=== PATIENT | female | born 1950 | race Caucasian/White ===

== ENCOUNTER → 2016-10-24 | Outpatient (CLI) | payer BC ==
[~2016-10-24] MED LIST: ACTIVELLA PO; ALDACTAZIDE 251 TAB PO; ALTACE10 MG PO; ALTACE5 MG PO; AMARYL4 MG PO; ARICEPT ODT5 MG PO; ARICEPT10 M1 PO; ASPIRIN CHEWABL81 MG PO; ASPIRIN325 MG PO; ASPIRIN81 M1 PO; BYDUREON PEN2 MG SC; BYDUREON2 M1 SQ; CENTRUM SILVER1 EACH PO; CENTRUM1 TAB PO; COREG CR20 MG PO; CORGARD20 MG PO; CYMBALTA30 MG PO; EXELON1.5 MG PO; FERRATE325 MG PO; FLEXERIL5 MG PO; FLUOXETINE HYDR20 M1 PO; GEMFIBROZIL600 MG PO; HUMALOG100 U/ML SC; HUMALOG100 UNIT/1 SQ; HYDROCODONE BIT1 T11 PO; KLONOPIN WAFER0.5 MG PO; LEVEMIR FLEX100 U/ML SC; LEVEMIR10 ML SC; LEVEMIR100 U/ML PO; LOPID600 M1 PO; LOVAZA1 GM PO; MACROBID100 M1 PO; METFORMIN HCL500 M1 PO; METFORMIN500 MG PO; METFORMIN750 MG PO; MULTIPLE VITAMI1 TA3 PO; NADOLOL20 MG PO; NEURONTIN300 MG PO; NOVOLOG10 ML SC; OMEGA-31000 MG PO; PREDNISONE20 MG PO; PROZAC10 MG PO; PROZAC20 MG PO; PYRIDIUM200 MG PO; QUETIAPINE FUMARATE; RAMIPRIL5 MG PO; SEROQUEL50 MG PO; SIMVASTATIN40 MG PO; SPIRONOLACTONE1 TA1 PO; SYNTHROID,LEV100 MCG PO; Synthroid,Lev100 MCG PO; Synthroid,Levo25 MCG PO; ULTRAM50 MG PO; VICTOZA6 MG/ML SC; VITAMIN D1000 IU PO; XANAX0.25 MG PO; ZOCOR20 MG PO; ZOCOR40 MG PO; ZOFRAN ODT4 MG SL; [UNRECOGNIZED DRUG - OTHER] PO; [UNRECOGNIZED DRUG - REMARK]
[2016-10-24 12:16] LABS: BASO # 0.1 10*3/uL (0.0-0.1); BASO % 0.5 % (0.0-1.0); EOS # 0.9 10*3/uL (0.0-0.4); EOS % 8.3 % (1.0-4.0); HEMATOCRIT 35.3 % (37.0-47.0); HEMOGLOBIN 10.8 g/dl (12.0-16.0); IG # 0.1 10*3/uL (0.0-0.1); LYMPH % 27.4 % (27.0-41.0); MEAN CELL VOLUME 83.8 fl (81.0-99.0); MEAN CORPUSCULAR HGB 25.7 pg (27.0-31.0); MEAN CORPUSCULAR HGB CONC 30.6 g/dl (33.0-37.0); MEAN PLATELET VOLUME 10.3 fl (9.6-12.3); MONO # 0.7 10*3/uL (0.1-1.0); MONO % 6.2 % (3.0-9.0); NEUT # 6.2 10*3/uL (2.3-7.9); PLATELET COUNT AUTOMATED 278 10*3/uL (130-400); RED BLOOD COUNT 4.21 10*6/uL (4.10-5.10); RED CELL DISTRI WIDTH 14.7 % (0-14.5)
[2016-10-24 12:40] LABS: ALBUMIN 3.5 gm/dl (3.1-4.5); ALKALINE PHOSPHATASE 39 U/L (45-117); BILIRUBIN, TOTAL 0.3 mg/dl (0.2-1.0); BUN 24 mg/dl (7-24); CARBON DIOXIDE 29 mmol/L (21-32); CHLORIDE 102 mmol/L (98-107); CHOLESTEROL 136 mg/dL (<200); EST GLOM FILT AFRICAN AMERICAN > 60 ml/min; GLUCOSE 206 mg/dL (65-99); HDL CHOLESTEROL 53 mg/dl (40-60); LDL CHOLESTEROL 33 mg/dL (9-159); POTASSIUM 4.4 mmol/L (3.5-5.1); SGOT/AST 38 IU/L (3-35); SGPT/ALT 45 U/L (12-78); SODIUM 140 mmol/L (136-145); TOTAL PROTEIN 7.4 gm/dL (6.4-8.2); TRIGLYCERIDES 250 mg/dl (<150); VLDL CHOLESTEROL 50 mg/dL (6-40)
[2016-10-24 12:41] LABS: HEMOGLOBIN A1c 9.1 % (4.8-5.6)
== END | disposition home or self-care (01) ==
LOC: LAB 10:45
PROVIDERS: Family Medicine
DX: I15.2 Hypertension secondary to endocrine disorders (principal); E03.9 Hypothyroidism, unspecified; E55.9 Vitamin D deficiency, unspecified; E08.42 Diabetes mellitus due to underlying condition with diabetic polyneuropathy

== ENCOUNTER → 2017-01-14 | Outpatient (CLI) | payer BC ==
[2017-01-14 15:00] LABS: BILIRUBIN NEGATIVE (NEGATIVE); BLOOD TRACE-INTACT (NEGATIVE); CLARITY SL CLOUDY (CLEAR); COLOR YELLOW (YELLOW); GLUCOSE TRACE (NEGATIVE); KETONE NEGATIVE (NEGATIVE); LEUKO ESTERASE TRACE (NEGATIVE); NITRITE NEGATIVE (NEGATIVE); PH 5.5 (5.0-9.0); PROTEIN 2+ (NEGATIVE); SPECIFIC GRAVITY >= 1.030 (1.005-1.030); UROBILINOGEN 0.2 E.U./dl (0.2-1.0)
[2017-01-14 15:14] LABS: BACTERIA TRACE; RBC 0-2 rbc/hpf (0-2)
[2017-01-14 15:24] LABS: HEMOGLOBIN A1c 9.6 % (4.8-5.6)
[2017-01-14 15:28] LABS: ALBUMIN 3.5 gm/dl (3.1-4.5); ALKALINE PHOSPHATASE 46 U/L (45-117); BILIRUBIN, DIRECT < 0.1 mg/dL (0.0-0.2); BUN 26 mg/dl (7-24); CARBON DIOXIDE 28 mmol/L (21-32); CHLORIDE 101 mmol/L (98-107); CHOLESTEROL 129 mg/dL (<200); EST GLOM FILT AFRICAN AMERICAN > 60 ml/min; GLUCOSE 274 mg/dL (65-99); POTASSIUM 5.1 mmol/L (3.5-5.1); SGOT/AST 53 IU/L (3-35); SGPT/ALT 43 U/L (12-78); SODIUM 140 mmol/L (136-145); TOTAL PROTEIN 7.7 gm/dL (6.4-8.2); TRIGLYCERIDES 272 mg/dl (<150); VLDL CHOLESTEROL 54 mg/dL (6-40)
[2017-01-14 15:30] LABS: BILIRUBIN, TOTAL 0.3 mg/dl (0.2-1.0); HDL CHOLESTEROL 43 mg/dl (40-60); LDL CHOLESTEROL 32 mg/dL (9-159)
[2017-01-14 16:04] LABS: VITAMIN D, 25-HYDROXY 31.7 ng/mL (30-100)
== END | disposition home or self-care (01) ==
LOC: LAB 14:34
PROVIDERS: Internal Medicine
DX: E11.40 Type 2 diabetes mellitus with diabetic neuropathy, unspecified (principal); E11.65 Type 2 diabetes mellitus with hyperglycemia; E55.9 Vitamin D deficiency, unspecified; E78.5 Hyperlipidemia, unspecified

== ENCOUNTER → 2017-05-25 | Outpatient (CLI) | payer MEDICARE, BC ==
[2017-05-25 12:54] LABS: BILIRUBIN NEGATIVE (NEGATIVE); BLOOD TRACE-INTACT (NEGATIVE); CLARITY SL CLOUDY (CLEAR); COLOR YELLOW (YELLOW); GLUCOSE NEGATIVE (NEGATIVE); KETONE NEGATIVE (NEGATIVE); LEUKO ESTERASE TRACE (NEGATIVE); NITRITE NEGATIVE (NEGATIVE); SPECIFIC GRAVITY >= 1.030 (1.005-1.030); UROBILINOGEN 0.2 E.U./dl (0.2-1.0)
[2017-05-25 13:31] LABS: CHLORIDE 103 mmol/L (98-107); POTASSIUM 4.4 mmol/L (3.5-5.1); SODIUM 139 mmol/L (136-145)
[2017-05-25 13:40] LABS: ALBUMIN 3.3 gm/dl (3.1-4.5); ALKALINE PHOSPHATASE 43 U/L (45-117); BILIRUBIN, DIRECT 0.1 mg/dL (0.0-0.2); BUN 30 mg/dl (7-24); CHOLESTEROL 121 mg/dL (<200); CREATININE 0.89 mg/dL (0.55-1.02); FREE T4 1.18 ng/dl (0.76-1.46); HDL CHOLESTEROL 40 mg/dl (40-60); LDL CHOLESTEROL 27 mg/dL (9-159); SGOT/AST 35 IU/L (3-35); SGPT/ALT 43 U/L (12-78); TOTAL PROTEIN 7.4 gm/dL (6.4-8.2); TRIGLYCERIDES 270 mg/dl (<150); VLDL CHOLESTEROL 54 mg/dL (6-40)
[2017-05-25 13:41] LABS: BACTERIA 1+
== END | disposition home or self-care (01) ==
LOC: LAB 12:15
PROVIDERS: Internal Medicine
DX: E11.65 Type 2 diabetes mellitus with hyperglycemia (principal); E03.9 Hypothyroidism, unspecified; E78.5 Hyperlipidemia, unspecified; E55.9 Vitamin D deficiency, unspecified

== ENCOUNTER → 2017-10-01 | Outpatient (CLI) | payer MEDICARE ==
[2017-10-01 08:42] LABS: ALBUMIN 3.5 gm/dl (3.1-4.5); BILIRUBIN, DIRECT < 0.1 mg/dL (0.0-0.2); BUN 25 mg/dl (7-24); CHLORIDE 105 mmol/L (98-107); CHOLESTEROL 123 mg/dL (<200); CREATININE 1.02 mg/dL (0.55-1.02); POTASSIUM 4.2 mmol/L (3.5-5.1); SGOT/AST 34 IU/L (3-35); SGPT/ALT 39 U/L (12-78); SODIUM 140 mmol/L (136-145); TOTAL PROTEIN 7.5 gm/dL (6.4-8.2); TRIGLYCERIDES 281 mg/dl (<150); VLDL CHOLESTEROL 56 mg/dL (6-40)
[2017-10-01 08:49] LABS: ALKALINE PHOSPHATASE 43 U/L (45-117); FREE T4 1.11 ng/dl (0.76-1.46); HDL CHOLESTEROL 43 mg/dl (40-60); LDL CHOLESTEROL 24 mg/dL (9-159)
[2017-10-01 09:44] LABS: BILIRUBIN NEGATIVE (NEGATIVE); BLOOD NEGATIVE (NEGATIVE); COLOR YELLOW (YELLOW); GLUCOSE 3+ (NEGATIVE); KETONE NEGATIVE (NEGATIVE); LEUKO ESTERASE NEGATIVE (NEGATIVE); NITRITE NEGATIVE (NEGATIVE); SPECIFIC GRAVITY >= 1.030 (1.005-1.030); UROBILINOGEN 0.2 E.U./dl (0.2-1.0)
[2017-10-01 09:55] LABS: BACTERIA 1+; CLARITY SL CLOUDY (CLEAR); EPITHELIAL CELLS TNTC; RBC 0-2 rbc/hpf (0-2)
== END | disposition home or self-care (01) ==
LOC: LAB 07:19
PROVIDERS: Internal Medicine
DX: E11.65 Type 2 diabetes mellitus with hyperglycemia (principal); E55.9 Vitamin D deficiency, unspecified; E03.9 Hypothyroidism, unspecified; E78.5 Hyperlipidemia, unspecified

== ENCOUNTER → 2018-02-17 | Outpatient (CLI) | payer MEDICARE ==
[2018-02-17 09:54] LABS: ALBUMIN 3.7 gm/dl (3.1-4.5); BUN 30 mg/dl (7-24); CHLORIDE 105 mmol/L (98-107); POTASSIUM 4.4 mmol/L (3.5-5.1); SGOT/AST 34 IU/L (3-35); SODIUM 142 mmol/L (136-145)
[2018-02-17 10:01] LABS: ALKALINE PHOSPHATASE 38 U/L (45-117); BILIRUBIN, DIRECT < 0.1 mg/dL (0.0-0.2); CHOLESTEROL 141 mg/dL (<200); FREE T4 0.92 ng/dl (0.76-1.46); HDL CHOLESTEROL 48 mg/dl (40-60); LDL CHOLESTEROL 48 mg/dL (9-159); SGPT/ALT 34 U/L (12-78); TOTAL PROTEIN 7.8 gm/dL (6.4-8.2); TRIGLYCERIDES 224 mg/dl (<150); VLDL CHOLESTEROL 45 mg/dL (6-40)
[2018-02-17 10:24] LABS: VITAMIN D, 25-HYDROXY 34.8 ng/mL (30-100)
[2018-02-17 10:27] LABS: BILIRUBIN NEGATIVE (NEGATIVE); BLOOD NEGATIVE (NEGATIVE); CLARITY SL CLOUDY (CLEAR); COLOR YELLOW (YELLOW); GLUCOSE 3+ (NEGATIVE); KETONE NEGATIVE (NEGATIVE); LEUKO ESTERASE NEGATIVE (NEGATIVE); NITRITE NEGATIVE (NEGATIVE); PH 5.5 (5.0-9.0); SPECIFIC GRAVITY 1.025 (1.005-1.030); UROBILINOGEN 0.2 E.U./dl (0.2-1.0)
[2018-02-17 10:47] LABS: BACTERIA TRACE
== END | disposition home or self-care (01) ==
LOC: LAB 09:00
PROVIDERS: Internal Medicine
DX: E11.40 Type 2 diabetes mellitus with diabetic neuropathy, unspecified (principal); E55.9 Vitamin D deficiency, unspecified; E11.65 Type 2 diabetes mellitus with hyperglycemia; E03.9 Hypothyroidism, unspecified; E78.5 Hyperlipidemia, unspecified

== ENCOUNTER 2018-05-11 19:06 | Inpatient (IN) | payer MEDICARE ==
[~2018-05-11] VITALS: Ht 154.9 cm; Wt 84.0 kg
--- NOTE | ~2018-05-11 | EKG ---
[place], [place] ELECTROCARDIOGRAM REPORT NAME: ALFREDO HUERTA UNIT #: [id number] ROOM: 407 DOCTOR: EL DRAFT REPORT BIRTHDATE: [birth year] [place] Test Date: 2018-05-11 Test Time: 20:19:02 Pat Name: ALFREDO HUERTA Department: Room: 407 Gender: F Pill Packer: REBECA : 1950 Requested By: ZACHARIAH LEE Order Number: [id number] Reading MD: Jesse Shankar MD Measurements Intervals [place] Rate: 68 P: 84 NC: 195 QRS: 49 QRSD: 94 T: 45 QT: 436 QTc: 464 Interpretive Statements Sinus rhythm Baseline wander in lead(s) V4 Electronically Signed On 05-12-2018 8:30:42 PDT by Jesse Shankar MD CM:EKGRPT:ELECTROCARDIOGRAM REPORT 18 ZACHARIAH YATES DRAFT REPORT ZACHARIAH LEE DO
[~2018-05-11 19:06] MED LIST changes: +GLUCOPHAGE1000 MG PO
[2018-05-11 19:18] VITALS: BP 195/86
[2018-05-11 20:24] LABS: BASO # 0.1 10*3/uL (0.0-0.1); BASO % 0.5 % (0.0-1.0); EOS # 0.7 10*3/uL (0.0-0.4); EOS % 5.8 % (1.0-4.0); HEMATOCRIT 40.5 % (37.0-47.0); HEMOGLOBIN 12.1 g/dl (12.0-16.0); LYMPH # 2.6 10*3/uL (1.3-4.4); LYMPH % 20.6 % (27.0-41.0); MEAN CELL VOLUME 81.5 fl (81.0-99.0); MEAN CORPUSCULAR HGB 24.3 pg (27.0-31.0); MEAN CORPUSCULAR HGB CONC 29.9 g/dl (33.0-37.0); MEAN PLATELET VOLUME 9.8 fl (9.6-12.3); MONO # 0.3 10*3/uL (0.1-1.0); MONO % 2.5 % (3.0-9.0); NEUT # 8.8 10*3/uL (2.3-7.9); NEUT % 70.2 % (47.0-73.0); PLATELET COUNT AUTOMATED 285 10*3/uL (130-400); RED BLOOD COUNT 4.97 10*6/uL (4.10-5.10); RED CELL DISTRI WIDTH 17.2 % (0-14.5); WHITE BLOOD COUNT 12.6 10*3/uL (4.8-10.8)
[2018-05-11 20:26] VITALS: BP 179/67
[2018-05-11 20:36] LABS: ACT PARTIAL THROMBO TIME 27.2 SECONDS (20.8-31.5)
[2018-05-11 20:43] LABS: ALBUMIN 3.6 gm/dl (3.1-4.5); ALKALINE PHOSPHATASE 49 U/L (45-117); BUN 31 mg/dl (7-24); CHLORIDE 104 mmol/L (98-107); CREATININE 0.98 mg/dL (0.55-1.02); POTASSIUM 4.4 mmol/L (3.5-5.1); SGOT/AST 37 IU/L (3-35); SGPT/ALT 34 U/L (12-78); SODIUM 137 mmol/L (136-145); TOTAL PROTEIN 8.6 gm/dL (6.4-8.2); TROPONIN I 0.018 ng/ml (<0.045)
[2018-05-11 22:20] VITALS: BP 166/80
[2018-05-11 22:42] VITALS: BP 166/80
[2018-05-12] VITALS: BP 187/67
[2018-05-12 07:18] LABS: BASO % 0.2 % (0.0-1.0); EOS # 0.6 10*3/uL (0.0-0.4); HEMATOCRIT 37.2 % (37.0-47.0); HEMOGLOBIN 11.4 g/dl (12.0-16.0); LYMPH # 3.6 10*3/uL (1.3-4.4); LYMPH % 29.6 % (27.0-41.0); MEAN CELL VOLUME 79.5 fl (81.0-99.0); MEAN CORPUSCULAR HGB 24.4 pg (27.0-31.0); MEAN CORPUSCULAR HGB CONC 30.6 g/dl (33.0-37.0); MONO # 0.8 10*3/uL (0.1-1.0); MONO % 6.9 % (3.0-9.0); NEUT % 57.9 % (47.0-73.0); PLATELET COUNT AUTOMATED 290 10*3/uL (130-400); RED BLOOD COUNT 4.68 10*6/uL (4.10-5.10); RED CELL DISTRI WIDTH 17.1 % (0-14.5); WHITE BLOOD COUNT 12.1 10*3/uL (4.8-10.8)
[2018-05-12 07:48] LABS: BUN 30 mg/dl (7-24); CHLORIDE 106 mmol/L (98-107); CREATININE 0.97 mg/dL (0.55-1.02); PHOSPHOROUS 2.7 mg/dL (2.5-4.9); SODIUM 140 mmol/L (136-145)
[2018-05-12 12:00] VITALS: BP 153/90
[2018-05-12] MEDS ORDERED: VITAMIN D31000 UNI1 PO (12:26)
[2018-05-12] MEDS ORDERED: ASPIRIN CHEWABL81 MG PO (12:28)
[2018-05-12] MEDS ORDERED: DONEPEZIL HYDRO10 M1 PO (12:29)
[2018-05-12] MEDS ORDERED: ACTOS15 M1 PO (12:30)
[2018-05-12] MEDS ORDERED: ZOLOFT50 MG PO (12:31)
[2018-05-12] MEDS ORDERED: SEROQUEL50 MG PO (12:32)
[2018-05-12] MEDS ORDERED: HUMALOG MI100 UNIT/1 SQ ×2 (12:36→12:37)
== END 2018-05-12 14:08 | disposition home or self-care (01) | DRG 639 ==
LOC: ED 19:06 → 4E 21:04 → EDHOLD 21:04 → 4E 22:06
PROVIDERS: Student in an Organized Health Care Education/Training Program
DX: E11.649 Type 2 diabetes mellitus with hypoglycemia without coma (principal); I16.0 Hypertensive urgency; D72.829 Elevated white blood cell count, unspecified; E11.42 Type 2 diabetes mellitus with diabetic polyneuropathy; F41.9 Anxiety disorder, unspecified; E78.5 Hyperlipidemia, unspecified; F32.9 Major depressive disorder, single episode, unspecified; E03.9 Hypothyroidism, unspecified; F03.90 Unspecified dementia, unspecified severity, without behavioral disturbance, psychotic disturbance, mood disturbance, and anxiety; K75.81 Nonalcoholic steatohepatitis (NASH); E66.01 Morbid (severe) obesity due to excess calories; Z79.4 Long term (current) use of insulin; Z79.84 Long term (current) use of oral hypoglycemic drugs; Z79.82 Long term (current) use of aspirin; Z79.899 Other long term (current) drug therapy; Z68.34 Body mass index [BMI] 34.0-34.9, adult; Z98.891 History of uterine scar from previous surgery; Z82.49 Family history of ischemic heart disease and other diseases of the circulatory system

== ENCOUNTER → 2018-05-30 | Outpatient (CLI) | payer MEDICARE ==
[~2018-05-30] MED LIST changes: +ACTOS15 M1 PO; +DONEPEZIL HYDRO10 M1 PO; +HUMALOG MI100 UNIT/1 SQ; +VITAMIN D31000 UNI1 PO; +ZOLOFT50 MG PO
[2018-05-30 09:13] LABS: ALBUMIN 3.3 gm/dl (3.1-4.5); BUN 30 mg/dl (7-24); CHLORIDE 105 mmol/L (98-107); CREATININE 0.91 mg/dL (0.55-1.02); POTASSIUM 4.1 mmol/L (3.5-5.1); SGOT/AST 25 IU/L (3-35); SGPT/ALT 27 U/L (12-78); SODIUM 138 mmol/L (136-145)
[2018-05-30 09:20] LABS: ALKALINE PHOSPHATASE 40 U/L (45-117); BILIRUBIN, DIRECT 0.1 mg/dL (0.0-0.2); CHOLESTEROL 151 mg/dL (<200); FREE T4 0.93 ng/dl (0.76-1.46); HDL CHOLESTEROL 49 mg/dl (40-60); LDL CHOLESTEROL 51 mg/dL (9-159); TOTAL PROTEIN 7.4 gm/dL (6.4-8.2); TRIGLYCERIDES 253 mg/dl (<150); VLDL CHOLESTEROL 51 mg/dL (6-40)
[2018-05-30 09:48] LABS: BILIRUBIN NEGATIVE (NEGATIVE); BLOOD TRACE-INTACT (NEGATIVE); CLARITY SL CLOUDY (CLEAR); COLOR YELLOW (YELLOW); GLUCOSE NEGATIVE (NEGATIVE); KETONE NEGATIVE (NEGATIVE); LEUKO ESTERASE NEGATIVE (NEGATIVE); NITRITE NEGATIVE (NEGATIVE); PH 5.5 (5.0-9.0); SPECIFIC GRAVITY >= 1.030 (1.005-1.030); UROBILINOGEN 0.2 E.U./dl (0.2-1.0)
[2018-05-30 09:50] LABS: VITAMIN D, 25-HYDROXY 35.7 ng/mL (30-100)
[2018-05-30 10:47] LABS: BACTERIA 1+
== END | disposition home or self-care (01) ==
LOC: LAB 08:16
PROVIDERS: Internal Medicine
DX: E11.40 Type 2 diabetes mellitus with diabetic neuropathy, unspecified (principal); E11.65 Type 2 diabetes mellitus with hyperglycemia; E03.9 Hypothyroidism, unspecified; E55.9 Vitamin D deficiency, unspecified; E78.5 Hyperlipidemia, unspecified

== ENCOUNTER → 2018-11-04 | Outpatient (CLI) | payer MEDICARE ==
[~2018-11-04] MED LIST changes: +SERTRALINE HYDR50 MG PO; +VIBRAMYCIN100 MG PO
[2018-11-04 09:47] LABS: ALBUMIN 3.4 gm/dl (3.1-4.5); ALKALINE PHOSPHATASE 48 U/L (45-117); BILIRUBIN, DIRECT < 0.1 mg/dL (0.0-0.2); BUN 26 mg/dl (7-24); CHLORIDE 104 mmol/L (98-107); CHOLESTEROL 177 mg/dL (<200); CREATININE 1.06 mg/dL (0.55-1.02); FREE T4 1.22 ng/dl (0.76-1.46); HDL CHOLESTEROL 52 mg/dl (40-60); LDL CHOLESTEROL 50 mg/dL (9-159); POTASSIUM 4.3 mmol/L (3.5-5.1); SGOT/AST 21 IU/L (3-35); SGPT/ALT 22 U/L (12-78); SODIUM 140 mmol/L (136-145); TOTAL PROTEIN 7.8 gm/dL (6.4-8.2); TRIGLYCERIDES 374 mg/dl (<150); VLDL CHOLESTEROL 75 mg/dL (6-40)
[2018-11-04 10:24] LABS: VITAMIN D, 25-HYDROXY 28.9 ng/mL (30-100)
[2018-11-04 10:57] LABS: BILIRUBIN NEGATIVE (NEGATIVE); BLOOD TRACE-INTACT (NEGATIVE); CLARITY SL CLOUDY (CLEAR); COLOR YELLOW (YELLOW); GLUCOSE TRACE (NEGATIVE); KETONE NEGATIVE (NEGATIVE); LEUKO ESTERASE NEGATIVE (NEGATIVE); NITRITE NEGATIVE (NEGATIVE); SPECIFIC GRAVITY >= 1.030 (1.005-1.030); UROBILINOGEN 0.2 E.U./dl (0.2-1.0)
[2018-11-04 11:18] LABS: BACTERIA 3+; HYALINE CAST 21-30; MUCOUS 1+
== END | disposition home or self-care (01) ==
LOC: LAB 08:32
PROVIDERS: Internal Medicine
DX: E03.9 Hypothyroidism, unspecified (principal); E11.40 Type 2 diabetes mellitus with diabetic neuropathy, unspecified; E78.5 Hyperlipidemia, unspecified; E55.9 Vitamin D deficiency, unspecified; E11.65 Type 2 diabetes mellitus with hyperglycemia

== ENCOUNTER → 2019-01-18 | Outpatient (CLI) | payer MEDICARE | END | disposition home or self-care (01) | LOC: RAD 01:24 → MAMMO 14:00 | DX: Z12.31 Encounter for screening mammogram for malignant neoplasm of breast (principal); Z13.820 Encounter for screening for osteoporosis; N95.9 Unspecified menopausal and perimenopausal disorder; E11.9 Type 2 diabetes mellitus without complications ==

== ENCOUNTER 2019-05-30 01:59 | Emergency (ER) | payer MEDICARE ==
[~2019-05-30] VITALS: Ht 157.4 cm; Wt 90.7 kg
[2019-05-30 02:07] VITALS: BP 157/95
== END 2019-05-30 03:28 | disposition home or self-care (01) ==
LOC: ED 01:59
DX: J34.89 Other specified disorders of nose and nasal sinuses (principal); I10 Essential (primary) hypertension; F03.90 Unspecified dementia, unspecified severity, without behavioral disturbance, psychotic disturbance, mood disturbance, and anxiety; E78.5 Hyperlipidemia, unspecified; E03.9 Hypothyroidism, unspecified; E66.01 Morbid (severe) obesity due to excess calories; E11.40 Type 2 diabetes mellitus with diabetic neuropathy, unspecified; Z79.2 Long term (current) use of antibiotics; Z79.82 Long term (current) use of aspirin; Z79.899 Other long term (current) drug therapy

== ENCOUNTER → 2019-11-16 | Outpatient (CLI) | payer MEDICARE | END | disposition home or self-care (01) | LOC: RAD 12:27 | DX: M41.85 Other forms of scoliosis, thoracolumbar region (principal); M47.817 Spondylosis without myelopathy or radiculopathy, lumbosacral region; I10 Essential (primary) hypertension; E11.9 Type 2 diabetes mellitus without complications ==

== ENCOUNTER 2020-01-29 14:30 | Inpatient (IN) | payer MEDICARE ==
[~2020-01-29] VITALS: Ht 162.5 cm; Wt 83.0 kg
[2020-01-29 14:38] VITALS: BP 142/60
[2020-01-29 15:24] LABS: BASO # 0.1 10*3/uL (0.0-0.1); BASO % 0.5 % (0.0-1.0); EOS # 0.6 10*3/uL (0.0-0.4); EOS % 4.7 % (1.0-4.0); HEMATOCRIT 31.9 % (37.0-47.0); LYMPH # 3.1 10*3/uL (1.3-4.4); LYMPH % 24.8 % (27.0-41.0); MEAN CELL VOLUME 83.1 fl (81.0-99.0); MEAN CORPUSCULAR HGB CONC 30.1 g/dl (33.0-37.0); MEAN PLATELET VOLUME 10.5 fl (9.6-12.3); MONO # 0.9 10*3/uL (0.1-1.0); MONO % 7.5 % (3.0-9.0); NEUT # 7.7 10*3/uL (2.3-7.9); NEUT % 61.9 % (47.0-73.0); PLATELET COUNT AUTOMATED 317 10*3/uL (130-400); RED BLOOD COUNT 3.84 10*6/uL (4.10-5.10); RED CELL DISTRI WIDTH 14.3 % (0-14.5); WHITE BLOOD COUNT 12.4 10*3/uL (4.8-10.8)
[2020-01-29 15:35] LABS: ACT PARTIAL THROMBO TIME 27.9 SECONDS (20.0-32.1)
[2020-01-29 15:43] LABS: ALBUMIN 2.6 gm/dl (3.1-4.5); CREATININE 2.23 mg/dL (0.55-1.02); POTASSIUM 4.1 mmol/L (3.5-5.1); TOTAL PROTEIN 7.4 gm/dL (6.4-8.2)
[2020-01-29 16:55] VITALS: BP 122/61
--- NOTE | 2020-01-29 17:20 | NUR ---
Time: 1749 A 69 year old FEMALE admitted to 5E under services of NOEL CAMACHO DO. Pt. arrived via ambulatory from ER. Chief complaint: CELLULITIS. BARBARA AGUILAR
--- NOTE | 2020-01-29 17:52 | NUR ---
DR. CALDWELL'S RESIDENT PHONE NUMBER CALLED. NO ANSWER AT THIS TIME.
[2020-01-29 17:56] VITALS: BP 142/66
[2020-01-29] MEDS ORDERED: GOOD SENSE ASP325 MG PO (18:41)
[2020-01-29] MEDS ORDERED: VASCEPA1 G1 PO (18:51)
--- NOTE | 2020-01-29 19:04 | NUR ---
DR. CALDWELL'S RESIDENT NOTIFIED OF CONSULT
[2020-01-29 20:00] VITALS: BP 128/63
--- NOTE | 2020-01-29 20:00 | NUR ---
PATIENT RESTING IN BED. WOUND ON 3RD TOE CLEANSED AND DRY GUAZE WRAPPED AROUND AREA. PRULENT DRAINAGE NOTED. C/O TENDERNESS AT SITE. PATIENT VOICES NO OTHER COMPLAINTS AT THIS TIME. BED IN LOWEST POSITION,CALL LIGHT WITHIN REACH, BED ALARM ON.
[2020-01-30] VITALS: BP 131/57
--- NOTE | 2020-01-30 04:00 | NUR ---
PATIENT ASLEEP. NO SIGNS OF DISTRESS. RESPIRATIONS EASY, NON LABORED. BED IN LOWEST POSITION,CALL LIGHT WITHIN REACH, BED ALARM ON. WILL CONTINUE TO MONITOR.
--- NOTE | 2020-01-30 04:59 | NUR ---
ALFREDO HUERTA [id number] Please refer to the physician's history and physical for past medical history, comorbid conditions, and allergies. Diagnosis: CELLULITIS,ACUTE KIDNEY FAILURE WITH TUBULAR NECRO Grabiel Score: 17,AT RISK WOUND DESCRIPTIONS: Wound Number: 1 Location of the wound: left 3rd toe Thickness: Full Size: 2.2cm x 1.2cm x 0.1cm Tunneling: none Undermining: none Sinus Tract: none Presence of Exudate: Purluent Amount: Light Color: Red, yellow Odor: None Periwound Skin Appearance: Erythema 11.0cm x 4.5cm x 0.1cm Wound edges: approximated Pain (associated with wound): tender at time of assessment How does patient state this happened? pt states this has been going on about one week or so Wound culture obtained at time of assessment. Surface the patient is resting on: Isoflex SKIN PREVENTION RECOMMENDATION: 1. Pressure redistribution support surface as appropriate 2. Elevate heels 3. Remove boots/TEDS every shift and reapply 4. Head of bed 30 degrees as tolerated 5. Assess nutrition and hydration 6. Manage moisture 7. Avoid the use of containment devices while in bed 8. Use absorptive products on surfaces limit layers of linens on bed 9. Turn and reposition every 1-2 hours in bed and every 1 hour in chair as tolerated 10. Weight shifts every 15 minutes while up in chair 11. Offloading with pillows or device to keep heels elevated off bed 12. Monitor skin at least every shift 13. Inspect under medical devices twice a day WOUND TREATMENT RECOMMENDATIONS: Podiatry is already on consult Cleanse left 3rd toe with nss and apply dsd daily and prn for soiling. Heel raiser pro boots to bilateral feet while in bed.
--- NOTE | 2020-01-30 05:44 | NUR ---
DSD appilied to Left 3rd toe pending physician orders. Patient tolerate dressing changes without diffcuilty. Call light within reach and bed in low position.
[2020-01-30 06:36] LABS: BASO % 0.4 % (0.0-1.0); EOS # 0.6 10*3/uL (0.0-0.4); HEMATOCRIT 26.8 % (37.0-47.0); LYMPH # 3.3 10*3/uL (1.3-4.4); LYMPH % 32.6 % (27.0-41.0); MEAN CORPUSCULAR HGB 25.4 pg (27.0-31.0); MEAN CORPUSCULAR HGB CONC 30.2 g/dl (33.0-37.0); MEAN PLATELET VOLUME 10.2 fl (9.6-12.3); MONO % 9.6 % (3.0-9.0); NEUT # 5.1 10*3/uL (2.3-7.9); NEUT % 50.8 % (47.0-73.0); PLATELET COUNT AUTOMATED 272 10*3/uL (130-400); RED BLOOD COUNT 3.19 10*6/uL (4.10-5.10); RED CELL DISTRI WIDTH 14.2 % (0-14.5)
[2020-01-30 07:04] LABS: CREATININE 1.95 mg/dL (0.55-1.02); POTASSIUM 3.9 mmol/L (3.5-5.1)
--- NOTE | 2020-01-30 07:31 | NUR ---
Dr. Bullard notified of wound care recommendations he states phone wasn't transferred to daylight team but will let them know.
[2020-01-30 07:42] LABS: VITAMIN D, 25-HYDROXY 22.9 ng/mL (30-100)
--- NOTE | 2020-01-30 07:42 | NUR ---
24 HR chart check completed.
[2020-01-30 08:00] VITALS: BP 154/61
--- NOTE | 2020-01-30 09:23 | NUR ---
TOOK OVER CARE OF PATIENT. PT IS RESTING COMFORTABLY IN BED FINISHING HER BREAKFAST. PT STATES SHE HAS NO COMPLAINTS AT THIS TIME AND HER FOOD WAS DELICIOUS.
[2020-01-30 12:00] VITALS: BP 153/64
--- NOTE | 2020-01-30 12:53 | NUR ---
CALLED DR. TODD'S OFFICE AND PLACED CONSULT. AWAITING CALL BACK.
--- NOTE | 2020-01-30 13:58 | NUR ---
Yard Switch Operator in to talk to patient. Patient states lives at HOME with . There are BASEMENT steps in the home. Physician: Sylvester EDGE Pharmacy: [facility] health services: NONE Patient's level of ADLs: INDEPENDENT Patient has working utilities: YES DME: [facility] Follow-up physician's appointment after d/c: WILL BE MADE BY HOSPITALIST NURSE DIRECTOR ON DISCHARGE Does patient want to access PORTAL?: NO Discharge plan PT LIVES AT HOME WITH HER AND IS INDEPENDENT IN HER CARE. DENIES SHE WILL HAVE NEEDS ON DISCHARGE. PLAN IS TO RETURN HOME WHEN MEDICALLY STABLE. WILL CONTINUE TO FOLLOW. WILL HAVE A RIDE HOME.. DAVID SANTACRUZ
--- NOTE | 2020-01-30 14:07 | NUR ---
Occupational Therapy evaluation completed on 5E with full evaluation to follow. Recommend occupational therapy per plan of care and SNF upon discharge. Thank you for this referral. Merissa Hunt OTR/L
[2020-01-30 16:00] VITALS: BP 147/74
--- NOTE | 2020-01-30 16:54 | NUR ---
PHYSICAL THERAPY Physical Therapy evaluation completed on 5E with full evaluation to follow. Moderate complexity PT evaluation per evaluation & chart review, [address]. Recommend physical therapy per plan of care and SNF upon discharge. Thank you for this referral. Tahira Lara,PT, DPT
[2020-01-30 20:00] VITALS: BP 152/75
[2020-01-31] VITALS: BP 155/75
--- NOTE | 2020-01-31 01:42 | NUR ---
OT NOTE Pt seen this date 1:1 for 20 min therapy session. Upon arrival pt supine in bed w bed alarm activated and had no complaints of pain. Pt identified by name and . Supine to sit completed to EOB w head of bed slightly raised and Min A to support UB. Once seated at EOB pt scooted towards the EOB so that her feet touched the floor. Pt donned B socks seated at EOB w Min A to start sock over L toes and SBA for her R. Sit <> stand completed from EOB w Min A and use of ww d/t poor transfer technique. Education provided for transfer technique and hand placement for safety and increased I followed by another sit to stand from EOB w CGA and use of ww. Functional mobility completed into bathroom to sink w CGA and use of ww to complete hand washing standing w CGA demonstrating F- balance. She then ambulated to standard commode w CGA and use of ww followed by a transfer to seated on standard commode w CGA and use of ww w poor hand placement. Pt completed toileting and hygine seated on standard commode w SBA. She stood from standard commode w verbal cues provided for hand placement on grab bar and CGA. She then completed hand washing again standing at sink w CGA. Functional mobility completed to bed w CGA and use of ww before returning to seated at EOB w use of ww and CGA. Pt returned to supine in bed w SBA and Min A for alignment in bed. At end of session pt supine in bed w bed alarm activated, call light in reach, bedside table in place and Podiatry present. Continue w current D/C to SNF. Salazar Graves/YASMIN Daily
--- NOTE | 2020-01-31 04:06 | NUR ---
24 HR chart check completed.
[2020-01-31 06:45] LABS: BASO # 0.1 10*3/uL (0.0-0.1); BASO % 0.5 % (0.0-1.0); EOS # 0.7 10*3/uL (0.0-0.4); EOS % 5.9 % (1.0-4.0); HEMATOCRIT 29.1 % (37.0-47.0); LYMPH # 3.7 10*3/uL (1.3-4.4); LYMPH % 33.6 % (27.0-41.0); MEAN CELL VOLUME 84.1 fl (81.0-99.0); MEAN CORPUSCULAR HGB 25.1 pg (27.0-31.0); MEAN CORPUSCULAR HGB CONC 29.9 g/dl (33.0-37.0); MEAN PLATELET VOLUME 10.3 fl (9.6-12.3); MONO # 0.9 10*3/uL (0.1-1.0); MONO % 8.5 % (3.0-9.0); NEUT # 5.7 10*3/uL (2.3-7.9); PLATELET COUNT AUTOMATED 301 10*3/uL (130-400); RED BLOOD COUNT 3.46 10*6/uL (4.10-5.10); RED CELL DISTRI WIDTH 14.2 % (0-14.5); WHITE BLOOD COUNT 11.1 10*3/uL (4.8-10.8)
[2020-01-31 06:51] LABS: CREATININE 1.6 mg/dL (0.55-1.02)
--- NOTE | 2020-01-31 07:30 | NUR ---
PT RESTING IN BED. VOICES NO CONCERNS AT THIS TIME. RESPS EASY AND NON LABORED. NO S/S OF DISTRESS NOTED. VSS. WHITE BOARD UPDATED. POC DISCUSSED W PT. DRESSING LEFT 3RD TOE C/D/O-SCANT AMOUNTS OF PURULENT DRAINAGE NOTED. WILL CONTINUE TO MONTIOR. CALL LIGHT WITHIN REACH.BED ALARM ON.
[2020-01-31 08:00] VITALS: BP 132/63
--- NOTE | 2020-01-31 09:00 | NUR ---
Dr. Hilton notified of wound care recommendations.
--- NOTE | 2020-01-31 10:15 | NUR ---
PT TAKEN OFF FLOOR FOR MRI
[2020-01-31 12:00] VITALS: BP 158/83
--- NOTE | 2020-01-31 12:30 | NUR ---
UPDATED ON POC. QUESTIONS ANSWERED
--- NOTE | 2020-01-31 12:33 | NUR ---
Nutritional Support Services Note: Appetite is good for meals. She receives a 1800cal diet as ordered. Ht.5'4 Wt.183# IBW 110-130#. She has a wound noted to left 3rd toe. No nutrition intervention needed at this time. Encouraged continued good intake of meals and fluids. Will follow if needed. Alyce Griffin Rdn Ld
--- NOTE | 2020-01-31 13:30 | NUR ---
PHYSICAL THERAPY Patient seen this pm 1:1 for therapy visit and was supine in bed upon therapist arrival. Patient identified by name / and reports no new c/o's at this time. OT geriatric nurse assistant was also present this session for observation only as patient transfers supine to sit EOB with MIN A x 1. Patient needed a few minutes to collect herself due to c/o of feeling a bit "fuzzy". Patient instructed on visual fixation technique and within approx 15 seconds reported improved clarity. Patient completed sit to stand transfer, needing v/c for proper hand placement and ambulated with use of wh walker, 40'x 1, CGA, demonstrating very slow, cautious gait pattern. Patient was a little unsteady during 180 degree turn around and was able to complete toilet transfer with use L side grab bar, SBA. Patient returned additional 15'x 1 to supine in bed as Knitting Teacher arrived for L foot wound care. Patient remained in bed with mild fatigue, call light, tray table, telephone and bed alarm for safety. Will continue per POC as tolerated, total treatment time 17 minutes. Kevin Winn, PROGRAM DIRECTOR/AIR PERSONALITY
--- NOTE | 2020-01-31 13:39 | NUR ---
PODIATRY INTO SEE PT AND DO DRESSING CHANGE
--- NOTE | 2020-01-31 14:52 | NUR ---
PT RESTING IN BED. VOICES NO CONCERNS. RESPS EASY AND NON LABORED. NO S/S OF DISTRESS NOTED. VSS. CALL LIGHT WITHIN REACH. BED ALARM ON.
--- NOTE | 2020-01-31 15:01 | NUR ---
PT CONTINUES TO DENY NEEDS ON DISCHRGE. PLANS TO RETURN HOME WHEN MEDICALLY STABLE. WILL CONTINUE TO FOLLOW.
--- NOTE | 2020-01-31 15:36 | NUR ---
NOTIFIED DR FRANCOIS PTS BLOOD SUGAR 529, REPEAT > 600. STATES TO GIVE 22 UNITS HUMALOG PER SLIDING SCALE AND RECHECK BLOOD SUGAR IN ONE HOUR. STAT GLUOCSE ORDERED WELL. PT ASYMPTOMATIC. STATES" OH THATS NOT THAT BAD"
[2020-01-31 16:00] VITALS: BP 153/81
--- NOTE | 2020-01-31 17:03 | NUR ---
PTS BLOOD SUGAR NOW [address] SAMREEN ROSEN
--- NOTE | 2020-01-31 17:31 | NUR ---
10 UNITS IV INSULIN GIVEN. WILL CONTINUE TO MONITOR. PT DENIES S/S OF HYPERGLYCEMIA DESPITE BS OF 525. RESPS EASY AND NON LABORED. NO S/S OF DISTRESS. CALL LIGHT WITHIN REACH. BODY ALARM INTACT
--- NOTE | 2020-01-31 18:38 | NUR ---
PTS BLOOD SUGAR NOW 239. WILL INFORM DR JOLLEY TEAM
[2020-01-31 20:00] VITALS: BP 155/82
--- NOTE | 2020-01-31 21:05 | NUR ---
CALLED IN TO GET UPDATE ON PATIENT. NOTIFIED OF DR. SONI PLANS FOR THE MORNING. POSSIBLE I&D VS AMPUTATION. PATIENT CONFUSED. RECEIVED VERBAL CONSENT FROM VERIFIED BY 2RNS.
--- NOTE | 2020-01-31 22:28 | NUR ---
PATIENTS DAUGHTER CALLED IN. GAVE UPDATE TO DAUGHTER AND LET HER KNOW PLANS OF SURGERY. DAUGHTER/ BOTH WANT CALLED BEFORE PATIENT IS TAKEN DOWN FOR SURGERY.
[2020-02-01] VITALS (12 sets, daily range): BP systolic 156–203; BP diastolic 65–101
--- NOTE | 2020-02-01 04:28 | NUR ---
NOTIFIED DR. PETER PATIENT HOME MEDICATIONS HAVE NEVER BEEN CONTINUED. DR. PETER TO REVIEW AND ORDER MEDICATIONS
--- NOTE | 2020-02-01 05:00 | NUR ---
PATIENT SLEEPING, NO SIGNS OF DISTRESS. RESPIRATIONS EASY, NON LABORED. BED IN LOWEST POSITION, CALL LIGHT WITHIN REACH. BED ALARM ON. WILL CONTINUE TO MONITOR.
[2020-02-01 06:45] LABS: BASO # 0.1 10*3/uL (0.0-0.1); BASO % 0.6 % (0.0-1.0); EOS # 0.7 10*3/uL (0.0-0.4); EOS % 5.6 % (1.0-4.0); HEMATOCRIT 31.3 % (37.0-47.0); LYMPH # 4.1 10*3/uL (1.3-4.4); MEAN CELL VOLUME 82.2 fl (81.0-99.0); MEAN CORPUSCULAR HGB 25.2 pg (27.0-31.0); MEAN CORPUSCULAR HGB CONC 30.7 g/dl (33.0-37.0); MEAN PLATELET VOLUME 10.2 fl (9.6-12.3); MONO # 1.1 10*3/uL (0.1-1.0); MONO % 8.3 % (3.0-9.0); NEUT # 7.1 10*3/uL (2.3-7.9); NEUT % 53.7 % (47.0-73.0); PLATELET COUNT AUTOMATED 360 10*3/uL (130-400); RED BLOOD COUNT 3.81 10*6/uL (4.10-5.10); RED CELL DISTRI WIDTH 13.9 % (0-14.5); WHITE BLOOD COUNT 13.1 10*3/uL (4.8-10.8)
[2020-02-01 07:30] LABS: CREATININE 1.65 mg/dL (0.55-1.02)
--- NOTE | 2020-02-01 09:45 | NUR ---
PHYSICAL THERAPY Patient seen this am 1:1 for therapy visit and was resting supine in bed upon therapist arrival. Patient identified by name / and joined by OT administrative sales assistant for observation only this session. Patient transfers supine to sit up EOB with MIN A, tolerating a minute or so of static EOB sit to collect herself. Patient then completed sit to stand transfer, MIN A, needing v/c for proper hand placement and demonstrated several bouts of increased confusion. Patient ambulates with use of wh walker, CGA, 20'x 2, demonstrating very slow, unsteady rojelio, requiring v/c to hold her head up during gait ex. Patient also needed v/c for improved wh walker safety / navigation and returned to supine in bed with mild fatigue. Patient remained in bed with call light, tray table, telephone and bed alarm for safety. Will continue per POC as tolerated, total treatment time 17 minutes. Kevin Winn, GENERATOR SWITCHBOARD OPERATOR
--- NOTE | 2020-02-01 09:59 | NUR ---
OT NOTE Pt seen this A.M. 1:1 for 15 min session. Upon arrival pt supine in bed w bed alarm activated. Pt identified by name and . She had no c/o pain at this time but was mildly confused requiring increased verbal cues for direction throughout session w good success. Bed mobility completed to seated at EOB w the head of her bed raised and Min A to manage UB. Once seated at EOB pt was able to scoot out so that her feet were touching the floor. Sit to stand completed from bed level w use of ww and CGA w verbal cues provided for proper hand placement to push up off of the bed and then to hold onto ww. Functional mobility completed into bathroom to sink w use of ww and CGA. Challanged pts standing tolerance needed to maximize strength for ADLs, functional mobility and transfers. Standing at sink pt brushed her teeth and washed her hands w use of ww and CGA demonstrating F- standing balance for 5 min. She then ambulated back to bed w use of ww and CGA d/t sudden onset of fatigue. She returned to seated at EOB w use of ww and CGA w verbal cues provided for direction w turning ww. Pt returned to supine in bed w SBA and Min A for proper alignment in bed. At end of session pt supine in bed w bed alarm activated, call light in reach and bedside table in place. Continue w current D/C to SNF. Salazar Graves/PADMINI Daily/Ezequiel
--- NOTE | 2020-02-01 10:54 | NUR ---
PT OFF FLOOR VIA BED TO OR FOR I&D OF LEFT THIRD TOE WITH PODIATRY.
--- NOTE | 2020-02-01 13:01 | NUR ---
PT STATES SHE WILL RETURN HOME WHEN MEDICALLY STABLE. STATES HE AND GRAND DAUGHTER HELP HER IF NEEDED. WILL CONTINUE TO FOLLOW.
--- NOTE | 2020-02-01 16:26 | NUR ---
PT GIVEN MORPHINE 2MG FOR 10/10 PAIN
--- NOTE | 2020-02-01 16:43 | NUR ---
CONTACTED DR CALLE REGARDING POST OP WEIGHT BEARING STATUS. PER DR CALLE PT CAN AMBULATE AND BEAR WEIGHT TO LEFT FOOT TOLERATED.
--- NOTE | 2020-02-01 21:15 | NUR ---
STAND BY ASSIST FOR PATIENT [place] [facility]. PATIENT IS WBAT TO LEFT FOTT, PATIENT TOLERATD WELL AND HAD NO COMPLAINTS OF PAIN. PATIENT IS ABLE TO TRANSFER SELF WITHOUT DIFFICULTIES. INFORMED PATIENT THAT IF HELOP IS NEEDED TO PRESS CALL LIGHT. CALL LIGTH LEFT WITHIN REACH
--- NOTE | 2020-02-01 21:21 | NUR ---
PATIENT MEDICATED WITH RESTORIL FOR C/O INSOMNIA. WILL MONITOR
--- NOTE | 2020-02-01 21:21 | NUR ---
Pt. blood sugar result 246. Covered with 5 units of Regular Insulin as ordered. ZACK DUPREE
[2020-02-02] VITALS: BP 151/64
--- NOTE | 2020-02-02 00:42 | NUR ---
24 HR chart check completed.
--- NOTE | 2020-02-02 01:17 | NUR ---
PATIENT MEDICATED WITH NORCO FOR C/O LEFT FOOT PAIN 12/19. WILL MONITOR
--- NOTE | 2020-02-02 06:02 | NUR ---
Pt. blood sugar result 236. Covered with 5 units of Regular Insulin as ordered. ZACK DUPREE
[2020-02-02 06:49] LABS: BASO # 0.1 10*3/uL (0.0-0.1); BASO % 0.5 % (0.0-1.0); EOS # 0.8 10*3/uL (0.0-0.4); EOS % 5.3 % (1.0-4.0); HEMATOCRIT 31.1 % (37.0-47.0); LYMPH # 3.4 10*3/uL (1.3-4.4); LYMPH % 23.5 % (27.0-41.0); MEAN CELL VOLUME 83.6 fl (81.0-99.0); MEAN CORPUSCULAR HGB 25.3 pg (27.0-31.0); MEAN CORPUSCULAR HGB CONC 30.2 g/dl (33.0-37.0); MONO # 1.2 10*3/uL (0.1-1.0); MONO % 8.1 % (3.0-9.0); NEUT % 61.8 % (47.0-73.0); PLATELET COUNT AUTOMATED 320 10*3/uL (130-400); RED BLOOD COUNT 3.72 10*6/uL (4.10-5.10); WHITE BLOOD COUNT 14.5 10*3/uL (4.8-10.8)
[2020-02-02 07:03] LABS: CREATININE 1.44 mg/dL (0.55-1.02); POTASSIUM 3.7 mmol/L (3.5-5.1)
--- NOTE | 2020-02-02 07:30 | NUR ---
TRANSFERRED PT CARE TO OVTC INSTRUCTOR DIANA FERRELL RN AND HER STUDENTS.
[2020-02-02 08:00] VITALS: BP 152/74
--- NOTE | 2020-02-02 08:26 | NUR ---
Dr. Mantilla notified of wound care recommendations
--- NOTE | 2020-02-02 09:29 | NUR ---
OT NOTE Pt seen this date 1:1 for 15 min session. Upon arrival pt seated on bedside commode w nursing staff present. Pt identified by name and and had complaints of pain in L foot when putting weight through it which pt did not rate on a 0-10 pain scale at this time. Pt was able to verbalize correct weight bearing status of LLE WBAT which was maintained throughout the entire session. Sit to stand completed from bedside commode w use of ww and Min A followed by functional mobility into the bathroom to the sink w use of ww and CGA. At sink pt brushed her teeth and combed her hair w CGA and demonstrated F- dynamic standing balance. Functional mobility completed back to bed w use of ww and CGA followed by a return to seated at EOB w use of ww and CGA. She returned to supine in bed w Min A for proper alignment in bed. At end of session pt supine in bed w bed alarm activated, call light in reach and bedside table in place. Continue w current D/C to SNF. Salazar Graves/PADMINI Daily/Ezequiel
[2020-02-02 10:07] LABS: ACID FAST SPEC PROCESSING Tissue Grinding (.)
--- NOTE | 2020-02-02 11:12 | NUR ---
PHYSICAL THERAPY Patient seen this am 1;1 for therapy visit and was sitting on BSC following patient care upon therapist arrival. Patient identified by name / and joined by OT junior sales assistant for observation this session. Patient reported mild L foot pain following medical procdure yesterday, but unabl to rate on 0-10 scale. Patient is WBAT on L LE and transfers sit to stand, MIN A, demonstrating slow initial rise. Patient ambulates with use of wh walker, CGA, 20'x 2, demonstrating antalgic, "step to" gait pattern. Patient was very cautious for fear of falling and returned to supine in bed with mild fatigue. Patient remained in bed with call light, tray table, telephone and bed alarm for safety. Will continue per POC as tolerated, total treatment time 17 minutes. Kevin Winn, PHARMACEUTICAL SALES SPECIALIST
--- NOTE | 2020-02-02 11:24 | NUR ---
DR SILVERIO ROUNDED AND SEEN PT.PT DRESSING CHANGE COMPLETED PER PODIATRY RESIDENT. PT VOICES NO NEEDS AT THIS TIME. CALL LIGHT IN REACH.
[2020-02-02 12:00] VITALS: BP 153/64
--- NOTE | 2020-02-02 13:23 | NUR ---
INTERMEDIATE SCHOOL TEACHER IN TO TALK WITH PT. DISCUSSED HOME HEALTH WITH PT BUT SHE DECLINES IT. STATES SHE HAS HER AND GRAND DAUGHTER AT HOME TO HELP HER AND DOES NOT WANT ANY HH AT THIS TIME. WILL CONTINUE TO FOLLOW.
--- NOTE | 2020-02-02 13:53 | NUR ---
PHYSICAL THERAPY CO-SIGN I approve of the Physical Therapy notes written above. Ivet Gutierrez PT
--- NOTE | 2020-02-02 14:13 | NUR ---
OCCUPATIONAL THERAPY CO-SIGN I approve of the Occupational Therapy notes written above. Merissa Hunt OTR/L
[2020-02-02 16:00] VITALS: BP 146/74
--- NOTE | 2020-02-02 18:49 | NUR ---
IV started right forearm with #22 protective cath after 1 attempts. Site prepped with Chloroprep. Sterile dressing applied. Patient tolerated procedure well. CARISA GARZA
[2020-02-02 20:00] VITALS: BP 150/78
--- NOTE | 2020-02-02 22:00 | NUR ---
PATIENT REPOSITIONED UP IN BED FOR COMFORT. STATED THAT HER PAIN IS MANAGEABLE AND HASRDLY NOTED,DOES NOT NEED ANY PAIN RELIEF MEDS. QUESTIONS AND CONCERNS ANSWERED. CALL LIGHT LEFT WITHIN REACH
--- NOTE | 2020-02-02 22:09 | NUR ---
Pt. blood sugar result 315. Covered with 15 units of Regular Insulin as ordered. ZACK DUPREE
--- NOTE | 2020-02-02 22:12 | NUR ---
PATIENT MEDICATED WITH RESTORIL FOR C/O INSOMNIA. WILL MONITOR
[2020-02-03] VITALS: BP 151/68
--- NOTE | 2020-02-03 06:20 | NUR ---
Pt. blood sugar result 211. Covered with 5 units of Regular Insulin as ordered. ZACK DUPREE
[2020-02-03 07:19] LABS: BASO # 0.1 10*3/uL (0.0-0.1); BASO % 0.5 % (0.0-1.0); EOS # 0.7 10*3/uL (0.0-0.4); EOS % 5.2 % (1.0-4.0); HEMATOCRIT 28.6 % (37.0-47.0); LYMPH # 3.4 10*3/uL (1.3-4.4); LYMPH % 25.5 % (27.0-41.0); MEAN CELL VOLUME 83.6 fl (81.0-99.0); MEAN CORPUSCULAR HGB 24.9 pg (27.0-31.0); MEAN CORPUSCULAR HGB CONC 29.7 g/dl (33.0-37.0); MEAN PLATELET VOLUME 10.2 fl (9.6-12.3); MONO # 1.2 10*3/uL (0.1-1.0); MONO % 9.2 % (3.0-9.0); NEUT # 7.7 10*3/uL (2.3-7.9); NEUT % 58.7 % (47.0-73.0); PLATELET COUNT AUTOMATED 332 10*3/uL (130-400); RED BLOOD COUNT 3.42 10*6/uL (4.10-5.10); RED CELL DISTRI WIDTH 13.8 % (0-14.5); WHITE BLOOD COUNT 13.2 10*3/uL (4.8-10.8)
[2020-02-03 07:32] LABS: CREATININE 1.51 mg/dL (0.55-1.02)
--- NOTE | 2020-02-03 07:33 | NUR ---
Shift chart check completed.24 HR chart check completed.
[2020-02-03 08:00] VITALS: BP 154/59
--- NOTE | 2020-02-03 08:32 | NUR ---
ON ASSESSMENT PATIENT ASSISTED OOB TO BSC. DRSG INTACT TO RT FOOT, NO EXTERNAL DRAINAGE. NO EDEMA ABOVE THE DRESSING. NO EDEMA OF LEFT LEG. HEP LOCK INTACT. ABDOMEN SOFT. ROOM AIR. SEE ALL APPROPRIATE INTERVENTIONS.
--- NOTE | 2020-02-03 11:00 | NUR ---
TOOK OVER CARE OF PT AT THIS TIME. PT SITTING UP IN BED, RESPIRATIONS EASY AND UNLABORED ON ROOM AIR. NO S/S OF DISTRESS NOTED. NO COMPLAINTS ARE VOICED. DRESSING TO RIGHT FOOT C/D/I. ALL NEEDS ARE CURRENTLY MET AND PT DENIES NEEDING ANYTHING. WILL CONTINUE TO MONITOR. CALL LIGHT IN REACH.
[2020-02-03 12:00] VITALS: BP 181/78
--- NOTE | 2020-02-03 12:20 | NUR ---
DR SPARKS NOTIFIED OF CRITICAL BEDSIDE GLUCOSE RESULTS OF 431 AND 460. ORDERS GIVEN TO GIVE PATIENT 22 UNITS PER SLIDING SCALE ORDERS ON EMAR. PHYSICIAN ALSO NOTIFIED OF ORDERS GIVEN BY DR TODD.
[2020-02-03] MEDS ORDERED: LANTUS SOL100 UNIT/1 SC (13:20)
[2020-02-03] MEDS ORDERED: OMNICEF300 MG PO (13:23)
--- NOTE | 2020-02-03 14:39 | NUR ---
ATTEMPTED TO CALL PT REGARDING PT BEING DISCHARGED AND NEEDING TRANSPORTATION HOME. VOICEMAIL LEFT. AWAITING CALL BACK AT THIS TIME.
--- NOTE | 2020-02-03 15:05 | NUR ---
Discharge instructions reviewed with patient/family. Patient receptive and verbalizes understanding. Follow-up care arranged. Written instructions given to patient/family. ERNA LITTLEJOHN
== END 2020-02-03 15:12 | disposition home or self-care (01) | DRG 853 ==
LOC: ED 14:30 → 5E 16:57 → EDHOLD 16:57 → 5E 17:09
PROVIDERS: Family Medicine; Internal Medicine; Podiatrist; ADMIT Internal Medicine
PROC: 0Y6U0Z0 Detachment at Left 3rd Toe, Complete, Open Approach (ICD-10-PCS; principal; 2020-02-01)
DX: A41.9 Sepsis, unspecified organism (principal); E43 Unspecified severe protein-calorie malnutrition; N17.0 Acute kidney failure with tubular necrosis; E87.1 Hypo-osmolality and hyponatremia; M00.9 Pyogenic arthritis, unspecified; M86.8X7 Other osteomyelitis, ankle and foot; E11.69 Type 2 diabetes mellitus with other specified complication; L03.032 Cellulitis of left toe; D64.9 Anemia, unspecified; D72.810 Lymphocytopenia; I10 Essential (primary) hypertension; E11.65 Type 2 diabetes mellitus with hyperglycemia; D72.1 Eosinophilia; R79.82 Elevated C-reactive protein (CRP); F41.9 Anxiety disorder, unspecified; F03.90 Unspecified dementia, unspecified severity, without behavioral disturbance, psychotic disturbance, mood disturbance, and anxiety; F32.9 Major depressive disorder, single episode, unspecified; E03.9 Hypothyroidism, unspecified; L97.519 Non-pressure chronic ulcer of other part of right foot with unspecified severity; E66.01 Morbid (severe) obesity due to excess calories; Z79.4 Long term (current) use of insulin; Z82.49 Family history of ischemic heart disease and other diseases of the circulatory system; Z68.34 Body mass index [BMI] 34.0-34.9, adult

== ENCOUNTER 2020-05-02 11:33 | Inpatient (IN) | payer MEDICARE ==
[~2020-05-02] VITALS: Ht 157.5 cm; Wt 87.5 kg
[~2020-05-02 11:33] MED LIST changes: +GOOD SENSE ASP325 MG PO; +LANTUS SOL100 UNIT/1 SC; +OMNICEF300 MG PO; +VASCEPA1 G1 PO
[2020-05-02 11:40] VITALS: BP 159/63
[2020-05-02 12:30] VITALS: BP 142/74
[2020-05-02 12:40] LABS: BILIRUBIN Negative (Negative); BLOOD 1+ (Negative); COLOR Yellow (Yellow); GLUCOSE 1+ (Negative); KETONE Negative (Negative); LEUKO ESTERASE Negative (Negative); NITRITE Negative (Negative); PH 6.5 (4.5-8.0); SPECIFIC GRAVITY 1.015 (1.001-1.030); UROBILINOGEN 0.2 E.U./dl (0.0-1.0)
[2020-05-02 12:45] LABS: CLARITY Clear (Clear)
[2020-05-02 12:48] LABS: BACTERIA 1+; MUCOUS 1+
[2020-05-02 12:54] LABS: BASO # 0.1 10*3/uL (0.0-0.1); BASO % 0.5 % (0.0-1.0); EOS # 0.8 10*3/uL (0.0-0.4); EOS % 7.2 % (1.0-4.0); LYMPH % 28.1 % (27.0-41.0); MEAN CELL VOLUME 83.3 fl (81.0-99.0); MEAN CORPUSCULAR HGB 24.2 pg (27.0-31.0); MEAN PLATELET VOLUME 10.2 fl (9.6-12.3); MONO # 0.7 10*3/uL (0.1-1.0); MONO % 6.6 % (3.0-9.0); NEUT # 6.1 10*3/uL (2.3-7.9); NEUT % 57.2 % (47.0-73.0); PLATELET COUNT AUTOMATED 333 10*3/uL (130-400); RED CELL DISTRI WIDTH 15.1 % (0-14.5); WHITE BLOOD COUNT 10.7 10*3/uL (4.8-10.8)
[2020-05-02 13:05] LABS: ACT PARTIAL THROMBO TIME 30.1 SECONDS (20.0-32.1)
[2020-05-02 13:09] LABS: ALBUMIN 2.5 gm/dl (3.1-4.5); ALKALINE PHOSPHATASE 45 U/L (45-117); BUN 51 mg/dl (7-24); CHLORIDE 108 mmol/L (98-107); CREATININE 1.72 mg/dL (0.55-1.02); LIPASE 258 U/L (73-393); POTASSIUM 4.1 mmol/L (3.5-5.1); SGOT/AST 19 IU/L (3-35); SGPT/ALT 18 U/L (12-78); SODIUM 141 mmol/L (136-145); TOTAL PROTEIN 7.3 gm/dL (6.4-8.2)
[2020-05-02 13:10] LABS: TROPONIN I 0.117 ng/ml (<0.045)
[2020-05-02 14:36] VITALS: BP 174/22
[2020-05-02 18:50] VITALS: BP 167/78
[2020-05-02 20:34] VITALS: BP 160/80
[2020-05-02 23:00] VITALS: BP 148/54
[2020-05-03] MEDS ORDERED: NATURE'S BLEND500 M6 PO (00:29)
[2020-05-03 07:55] LABS: BASO % 0.4 % (0.0-1.0); EOS # 0.9 10*3/uL (0.0-0.4); EOS % 9.1 % (1.0-4.0); HEMATOCRIT 29.8 % (37.0-47.0); LYMPH % 30.9 % (27.0-41.0); MEAN CELL VOLUME 83.9 fl (81.0-99.0); MEAN CORPUSCULAR HGB 24.5 pg (27.0-31.0); MEAN CORPUSCULAR HGB CONC 29.2 g/dl (33.0-37.0); MEAN PLATELET VOLUME 10.3 fl (9.6-12.3); MONO # 0.7 10*3/uL (0.1-1.0); MONO % 6.8 % (3.0-9.0); NEUT # 5.1 10*3/uL (2.3-7.9); NEUT % 52.4 % (47.0-73.0); PLATELET COUNT AUTOMATED 287 10*3/uL (130-400); RED BLOOD COUNT 3.55 10*6/uL (4.10-5.10); RED CELL DISTRI WIDTH 15.4 % (0-14.5); WHITE BLOOD COUNT 9.7 10*3/uL (4.8-10.8)
[2020-05-03 08:00] VITALS: BP 160/74
[2020-05-03 08:33] LABS: ALBUMIN 2.4 gm/dl (3.1-4.5); CREATININE 1.74 mg/dL (0.55-1.02); FREE T4 0.91 ng/dl (0.76-1.46); TOTAL PROTEIN 6.8 gm/dL (6.4-8.2)
[2020-05-03 08:38] LABS: THYROID STIM HORMONE (HS) 9.17 uIU/ml (0.358-4.75)
[2020-05-03 09:55] LABS: VITAMIN D, 25-HYDROXY 17.6 ng/mL (30-100)
[2020-05-03 12:00] VITALS: BP 147/95
[2020-05-03] MEDS ORDERED: PIOGLITAZONE HC30 MG PO (14:07)
[2020-05-03] MEDS ORDERED: VITAMIN D31250 MC1 PO (15:47)
[2020-05-03] MEDS ORDERED: VICTOZA 3-0.6 MG/0.1 SQ (15:52)
[2020-05-03 16:00] VITALS: BP 178/88
[2020-05-03 18:59] VITALS: BP 150/88
[2020-05-04] VITALS: BP 183/67
[2020-05-04 00:20] VITALS: BP 140/80
[2020-05-04 08:56] LABS: BASO % 0.5 % (0.0-1.0); EOS # 0.6 10*3/uL (0.0-0.4); EOS % 7.3 % (1.0-4.0); HEMATOCRIT 28.8 % (37.0-47.0); LYMPH # 2.5 10*3/uL (1.3-4.4); LYMPH % 28.3 % (27.0-41.0); MEAN CELL VOLUME 83.7 fl (81.0-99.0); MEAN CORPUSCULAR HGB 24.4 pg (27.0-31.0); MEAN CORPUSCULAR HGB CONC 29.2 g/dl (33.0-37.0); MEAN PLATELET VOLUME 10.6 fl (9.6-12.3); MONO # 0.7 10*3/uL (0.1-1.0); MONO % 7.4 % (3.0-9.0); NEUT % 56.3 % (47.0-73.0); PLATELET COUNT AUTOMATED 290 10*3/uL (130-400); RED BLOOD COUNT 3.44 10*6/uL (4.10-5.10); RED CELL DISTRI WIDTH 15.5 % (0-14.5); WHITE BLOOD COUNT 8.8 10*3/uL (4.8-10.8)
[2020-05-04 09:10] LABS: CREATININE 1.46 mg/dL (0.55-1.02)
[2020-05-04 12:00] VITALS: BP 193/85
[2020-05-04 16:00] VITALS: BP 188/69
[2020-05-04 19:07] VITALS: BP 162/86
[2020-05-04 20:00] VITALS: BP 162/50
[2020-05-05] VITALS: BP 153/54
[2020-05-05 06:23] LABS: BASO % 0.4 % (0.0-1.0); EOS # 0.7 10*3/uL (0.0-0.4); HEMATOCRIT 30.2 % (37.0-47.0); LYMPH # 2.7 10*3/uL (1.3-4.4); MEAN CELL VOLUME 83.2 fl (81.0-99.0); MEAN CORPUSCULAR HGB 24.5 pg (27.0-31.0); MEAN CORPUSCULAR HGB CONC 29.5 g/dl (33.0-37.0); MEAN PLATELET VOLUME 9.8 fl (9.6-12.3); MONO # 0.8 10*3/uL (0.1-1.0); MONO % 8.4 % (3.0-9.0); NEUT # 4.7 10*3/uL (2.3-7.9); PLATELET COUNT AUTOMATED 270 10*3/uL (130-400); RED BLOOD COUNT 3.63 10*6/uL (4.10-5.10); RED CELL DISTRI WIDTH 15.4 % (0-14.5); WHITE BLOOD COUNT 8.9 10*3/uL (4.8-10.8)
[2020-05-05 06:39] LABS: POTASSIUM 3.7 mmol/L (3.5-5.1)
[2020-05-05 06:40] LABS: CREATININE 1.62 mg/dL (0.55-1.02)
[2020-05-05] MEDS ORDERED: LOPRESSOR25 MG PO (10:14)
[2020-05-05] MEDS ORDERED: ASPIRIN ADULT L81 M2 PO (10:14)
== END 2020-05-05 11:40 | disposition home or self-care (01) | DRG 280 ==
LOC: ED 11:33 → EDHOLD 14:54 → 5E 14:54
PROVIDERS: Emergency Medicine; Family Medicine; Hospitalist; ADMIT Internal Medicine; ATTEND Internal Medicine
DX: I21.4 Non-ST elevation (NSTEMI) myocardial infarction (principal); N17.1 Acute kidney failure with acute cortical necrosis; E43 Unspecified severe protein-calorie malnutrition; N17.0 Acute kidney failure with tubular necrosis; E03.9 Hypothyroidism, unspecified; E87.8 Other disorders of electrolyte and fluid balance, not elsewhere classified; R53.1 Weakness; E11.65 Type 2 diabetes mellitus with hyperglycemia; R31.9 Hematuria, unspecified; F32.9 Major depressive disorder, single episode, unspecified; E78.5 Hyperlipidemia, unspecified; F03.90 Unspecified dementia, unspecified severity, without behavioral disturbance, psychotic disturbance, mood disturbance, and anxiety; I11.9 Hypertensive heart disease without heart failure; E66.01 Morbid (severe) obesity due to excess calories; M48.061 Spinal stenosis, lumbar region without neurogenic claudication; R79.89 Other specified abnormal findings of blood chemistry; E11.40 Type 2 diabetes mellitus with diabetic neuropathy, unspecified; D72.19 Other eosinophilia; R05 Cough; Z79.4 Long term (current) use of insulin; Z98.891 History of uterine scar from previous surgery; Z82.49 Family history of ischemic heart disease and other diseases of the circulatory system; Z79.899 Other long term (current) drug therapy; Z79.82 Long term (current) use of aspirin; Z68.35 Body mass index [BMI] 35.0-35.9, adult

== ENCOUNTER 2020-07-18 15:29 | Emergency (ER) | payer MEDICARE ==
[~2020-07-18] VITALS: Ht 152.4 cm; Wt 91.2 kg
[~2020-07-18 15:29] MED LIST changes: +ASPIRIN ADULT L81 M2 PO; +LOPRESSOR25 MG PO; +NATURE'S BLEND500 M6 PO; +PIOGLITAZONE HC30 MG PO; +VICTOZA 3-0.6 MG/0.1 SQ; +VITAMIN D31250 MC1 PO
[2020-07-18 17:54] VITALS: BP 173/93
== END 2020-07-18 18:10 | disposition home or self-care (01) ==
LOC: ED 15:29
DX: I12.9 Hypertensive chronic kidney disease with stage 1 through stage 4 chronic kidney disease, or unspecified chronic kidney disease (principal); E11.22 Type 2 diabetes mellitus with diabetic chronic kidney disease; N18.4 Chronic kidney disease, stage 4 (severe)

== ENCOUNTER → 2020-07-24 | Outpatient (CLI) | payer MEDICARE ==
[~2020-07-24] MED LIST changes: +DAILY VALUE1 EACH PO; +MIRTAZAPINE15 M2 PO; +NORVASC10 MG PO; +NOVOLOG MI100 UNIT/1 SC
== END | disposition home or self-care (01) ==
LOC: US 12:57
PROVIDERS: ATTEND Family Medicine
DX: N28.1 Cyst of kidney, acquired (principal); M54.5 Low back pain

== ENCOUNTER 2020-09-06 18:45 | Inpatient (IN) | payer MEDICARE ==
[~2020-09-06] VITALS: Ht 157.4 cm; Wt 87.5 kg
[~2020-09-06 18:45] MED LIST changes: -DAILY VALUE1 EACH PO; -MIRTAZAPINE15 M2 PO; -NORVASC10 MG PO; -NOVOLOG MI100 UNIT/1 SC
[2020-09-06 18:49] VITALS: BP 127/36
[2020-09-06 19:22] LABS: BILIRUBIN Negative (Negative); BLOOD Trace-Lysed (Negative); CLARITY Clear (Clear); COLOR Yellow (Yellow); GLUCOSE 3+ (Negative); KETONE Negative (Negative); LEUKO ESTERASE Negative (Negative); NITRITE Negative (Negative); PH 6.5 (4.5-8.0); SPECIFIC GRAVITY 1.015 (1.001-1.030); UROBILINOGEN 0.2 E.U./dl (0.0-1.0)
[2020-09-06 19:42] LABS: BACTERIA TRACE; WBC 0-2 wbc/hpf (0-5)
[2020-09-06 19:42] LABS: BASO % 0.4 % (0.0-1.0); EOS # 0.4 10*3/uL (0.0-0.4); EOS % 3.4 % (1.0-4.0); HEMATOCRIT 26.2 % (37.0-47.0); LYMPH # 2.6 10*3/uL (1.3-4.4); LYMPH % 25.5 % (27.0-41.0); MEAN CELL VOLUME 80.4 fl (81.0-99.0); MEAN CORPUSCULAR HGB 24.8 pg (27.0-31.0); MEAN CORPUSCULAR HGB CONC 30.9 g/dl (33.0-37.0); MEAN PLATELET VOLUME 9.5 fl (9.6-12.3); MONO # 0.6 10*3/uL (0.1-1.0); MONO % 6.1 % (3.0-9.0); NEUT # 6.6 10*3/uL (2.3-7.9); NEUT % 64.3 % (47.0-73.0); PLATELET COUNT AUTOMATED 260 10*3/uL (130-400); RED BLOOD COUNT 3.26 10*6/uL (4.10-5.10); WHITE BLOOD COUNT 10.3 10*3/uL (4.8-10.8)
[2020-09-06 20:01] LABS: ALBUMIN 2.3 gm/dl (3.1-4.5); CREATININE 2.65 mg/dL (0.55-1.02); POTASSIUM 4.5 mmol/L (3.5-5.1); TOTAL PROTEIN 6.6 gm/dL (6.4-8.2)
[2020-09-06 20:07] VITALS: BP 110/47
[2020-09-06 21:07] LABS: URINE AMPHETAMINES < 1000 (1000ng/ml); URINE BARBITURATES < 200 (200ng/ml); URINE BENZODIAZEPINES < 200 (200ng/ml); URINE CANNABINOIDS (THC) < 50 (50ng/ml); URINE COCAINE < 300 (300ng/ml); URINE METHADONE < 300 (300ng/ml); URINE OPIATES < 300 (300ng/ml)
[2020-09-06 21:20] LABS: ACT PARTIAL THROMBO TIME 25.9 SECONDS (20.0-32.1); INTERNATIONAL NORM RATIO 0.9 (2.0-3.5)
[2020-09-06 21:24] LABS: URINE PHENCYCLIDINE < 25 (25ng/ml)
[2020-09-06 21:25] LABS: TROPONIN I 0.13 ng/ml (<0.045)
[2020-09-06 22:07] VITALS: BP 162/73
[2020-09-06] MEDS ORDERED: NOVOLOG MI100 UNIT/1 SC (22:26)
[2020-09-06 22:30] VITALS: BP 153/71
[2020-09-06 22:51] VITALS: BP 153/71
[2020-09-07 06:18] LABS: BASO # 0.1 10*3/uL (0.0-0.1); BASO % 0.4 % (0.0-1.0); EOS # 0.5 10*3/uL (0.0-0.4); EOS % 4.7 % (1.0-4.0); HEMATOCRIT 28.6 % (37.0-47.0); LYMPH # 2.9 10*3/uL (1.3-4.4); LYMPH % 25.5 % (27.0-41.0); MEAN CELL VOLUME 82.2 fl (81.0-99.0); MEAN CORPUSCULAR HGB 24.1 pg (27.0-31.0); MEAN CORPUSCULAR HGB CONC 29.4 g/dl (33.0-37.0); MONO # 0.8 10*3/uL (0.1-1.0); MONO % 7.1 % (3.0-9.0); NEUT # 7.1 10*3/uL (2.3-7.9); NEUT % 61.9 % (47.0-73.0); PLATELET COUNT AUTOMATED 296 10*3/uL (130-400); RED BLOOD COUNT 3.48 10*6/uL (4.10-5.10); RED CELL DISTRI WIDTH 16.2 % (0-14.5); WHITE BLOOD COUNT 11.5 10*3/uL (4.8-10.8)
[2020-09-07 06:32] LABS: ALBUMIN 2.4 gm/dl (3.1-4.5); CREATININE 2.21 mg/dL (0.55-1.02); POTASSIUM 4.4 mmol/L (3.5-5.1); TOTAL PROTEIN 7.1 gm/dL (6.4-8.2)
[2020-09-07 08:00] VITALS: BP 176/90
[2020-09-07] MEDS ORDERED: CORGARD20 MG PO (10:06)
[2020-09-07] MEDS ORDERED: DAILY VALUE1 EACH PO (10:06)
[2020-09-07] MEDS ORDERED: CYMBALTA30 MG PO (10:07)
[2020-09-07] MEDS ORDERED: Synthroid,Lev100 MCG PO (10:08)
[2020-09-07] MEDS ORDERED: NORVASC10 MG PO (10:09)
[2020-09-07 12:00] VITALS: BP 186/71
[2020-09-07 16:00] VITALS: BP 147/57
[2020-09-07 20:00] VITALS: BP 153/59
[2020-09-08] VITALS: BP 164/68
[2020-09-08 08:00] VITALS: BP 159/62
[2020-09-08 12:00] VITALS: BP 164/68
[2020-09-08] MEDS ORDERED: MIRTAZAPINE15 M2 PO (12:17)
[2020-09-08 16:00] VITALS: BP 158/60
[2020-09-08 20:00] VITALS: BP 149/58
[2020-09-09] VITALS: BP 149/62
[2020-09-09 07:13] LABS: CREATININE 2.45 mg/dL (0.55-1.02); POTASSIUM 4.1 mmol/L (3.5-5.1)
[2020-09-09 08:00] VITALS: BP 173/75
[2020-09-09 12:00] VITALS: BP 154/60
[2020-09-09 16:00] VITALS: BP 146/56
[2020-09-09 20:00] VITALS: BP 132/50
[2020-09-10] VITALS: BP 178/56
[2020-09-10 06:12] LABS: CREATININE 2.18 mg/dL (0.55-1.02); POTASSIUM 4.1 mmol/L (3.5-5.1)
[2020-09-10 06:18] LABS: BASO % 0.4 % (0.0-1.0); EOS # 0.5 10*3/uL (0.0-0.4); EOS % 4.4 % (1.0-4.0); HEMATOCRIT 27.1 % (37.0-47.0); LYMPH # 2.6 10*3/uL (1.3-4.4); MEAN CELL VOLUME 83.4 fl (81.0-99.0); MEAN CORPUSCULAR HGB 24.6 pg (27.0-31.0); MEAN CORPUSCULAR HGB CONC 29.5 g/dl (33.0-37.0); MEAN PLATELET VOLUME 10.1 fl (9.6-12.3); MONO # 0.7 10*3/uL (0.1-1.0); MONO % 6.9 % (3.0-9.0); NEUT # 6.5 10*3/uL (2.3-7.9); NEUT % 62.9 % (47.0-73.0); PLATELET COUNT AUTOMATED 273 10*3/uL (130-400); RED BLOOD COUNT 3.25 10*6/uL (4.10-5.10); RED CELL DISTRI WIDTH 17.1 % (0-14.5); WHITE BLOOD COUNT 10.3 10*3/uL (4.8-10.8)
[2020-09-10 08:00] VITALS: BP 169/68
[2020-09-10 12:00] VITALS: BP 158/69
[2020-09-10 16:00] VITALS: BP 157/70
== END 2020-09-10 17:38 | disposition home health service (06) | DRG 637 ==
LOC: ED 18:45 → 4E 21:33 → EDHOLD 21:33 → 4E 22:02
PROVIDERS: Emergency Medicine; Family Medicine; Hospitalist; Internal Medicine; Nurse Practitioner Family; ADMIT Family Medicine; ATTEND Family Medicine
DX: E11.65 Type 2 diabetes mellitus with hyperglycemia (principal); G93.41 Metabolic encephalopathy; N17.0 Acute kidney failure with tubular necrosis; E43 Unspecified severe protein-calorie malnutrition; F33.9 Major depressive disorder, recurrent, unspecified; I24.8 Other forms of acute ischemic heart disease; E11.22 Type 2 diabetes mellitus with diabetic chronic kidney disease; I12.9 Hypertensive chronic kidney disease with stage 1 through stage 4 chronic kidney disease, or unspecified chronic kidney disease; N18.30 Chronic kidney disease, stage 3 unspecified; E88.1 Lipodystrophy, not elsewhere classified; E03.9 Hypothyroidism, unspecified; K75.81 Nonalcoholic steatohepatitis (NASH); E55.9 Vitamin D deficiency, unspecified; D53.9 Nutritional anemia, unspecified; M48.062 Spinal stenosis, lumbar region with neurogenic claudication; G30.9 Alzheimer's disease, unspecified; F02.80 Dementia in other diseases classified elsewhere, unspecified severity, without behavioral disturbance, psychotic disturbance, mood disturbance, and anxiety; E11.42 Type 2 diabetes mellitus with diabetic polyneuropathy; D50.9 Iron deficiency anemia, unspecified; E66.9 Obesity, unspecified; Z20.822 Contact with and (suspected) exposure to COVID-19; Z79.4 Long term (current) use of insulin; Z82.49 Family history of ischemic heart disease and other diseases of the circulatory system; Z98.891 History of uterine scar from previous surgery; Z68.35 Body mass index [BMI] 35.0-35.9, adult

== ENCOUNTER → 2020-11-04 | Outpatient (CLI) | payer MEDICARE ==
[~2020-11-04] MED LIST changes: +DAILY VALUE1 EACH PO; +MIRTAZAPINE15 M2 PO; +NORVASC10 MG PO; +NOVOLOG MI100 UNIT/1 SC
[2020-11-04 12:07] LABS: BASO # 0.1 10*3/uL (0.0-0.1); BASO % 0.5 % (0.0-1.0); EOS # 0.4 10*3/uL (0.0-0.4); EOS % 2.8 % (1.0-4.0); HEMATOCRIT 33.4 % (37.0-47.0); LYMPH # 3.1 10*3/uL (1.3-4.4); LYMPH % 20.7 % (27.0-41.0); MEAN CELL VOLUME 82.7 fl (81.0-99.0); MEAN CORPUSCULAR HGB CONC 30.2 g/dl (33.0-37.0); MEAN PLATELET VOLUME 10.3 fl (9.6-12.3); MONO % 6.8 % (3.0-9.0); NEUT # 10.3 10*3/uL (2.3-7.9); NEUT % 68.7 % (47.0-73.0); PLATELET COUNT AUTOMATED 343 10*3/uL (130-400); RED BLOOD COUNT 4.04 10*6/uL (4.10-5.10); RED CELL DISTRI WIDTH 15.1 % (0-14.5)
[2020-11-04 12:08] LABS: BILIRUBIN Negative (Negative); BLOOD 1+ (Negative); CLARITY Clear (Clear); COLOR Yellow (Yellow); GLUCOSE 2+ (Negative); KETONE Negative (Negative); LEUKO ESTERASE Negative (Negative); NITRITE Negative (Negative); UROBILINOGEN 0.2 E.U./dl (0.0-1.0)
[2020-11-04 12:19] LABS: URINE CREATININE RANDOM 70.5 mg/dL
[2020-11-04 12:24] LABS: CREATININE 2.87 mg/dL (0.55-1.02); CREATININE 2.91 mg/dL (0.55-1.02); POTASSIUM 4.4 mmol/L (3.5-5.1); POTASSIUM 4.5 mmol/L (3.5-5.1); TOTAL PROTEIN 7.7 gm/dL (6.4-8.2)
[2020-11-04 12:30] LABS: FREE T4 1.03 ng/dl (0.76-1.46); THYROID STIM HORMONE (HS) 10.8 uIU/ml (0.358-4.75)
[2020-11-04 12:37] LABS: BACTERIA 3+
[2020-11-04 13:20] LABS: FERRITIN 25.6 ng/mL (10.0-291.0)
[2020-11-04 13:22] LABS: PTH INTACT 6.1 pg/mL (18.5-88.0)
[2020-11-05 04:06] LABS: LDL CHOLESTEROL (DIRECT) 136 mg/dL (0-99)
[2020-11-05 10:07] LABS: CREATININE,URINE 60.2 mg/dL (Not Estab.)
== END | disposition home or self-care (01) ==
LOC: LAB 11:18
PROVIDERS: Internal Medicine Nephrology; ATTEND Internal Medicine Endocrinology, Diabetes & Metabolism
DX: E11.21 Type 2 diabetes mellitus with diabetic nephropathy (principal); E11.22 Type 2 diabetes mellitus with diabetic chronic kidney disease; N18.4 Chronic kidney disease, stage 4 (severe); D63.1 Anemia in chronic kidney disease; E11.65 Type 2 diabetes mellitus with hyperglycemia; E55.9 Vitamin D deficiency, unspecified; E03.9 Hypothyroidism, unspecified; E78.2 Mixed hyperlipidemia; E78.5 Hyperlipidemia, unspecified; N25.81 Secondary hyperparathyroidism of renal origin